=== PATIENT | female | born 1980 | race Caucasian/White ===

== ENCOUNTER 2018-06-30 00:48 | Emergency (ER) | payer OTHER ==
[2018-06-30 02:07] LABS: CONTROL LINE INT CTR LINE PRESENT; HIV EXPOSED PT 1 NEGATIVE (NEGATIVE); HIVEXPOSED0 NEGATIVE (NEGATIVE)
[2018-06-30 11:02] LABS: HEPATITIS B SURFACE ANTIBODY POSITIVE (POSITIVE); HEPATITIS B SURFACE ANTIGEN NEGATIVE (NEGATIVE)
[2018-06-30 11:02] LABS: HEPATITIS C VIRUS ABY INDEX 0.2 INDEX (<0.8)
== END 2018-06-30 01:49 | disposition home or self-care (01) ==
LOC: M ED 00:48
DX: Z77.21 Contact with and (suspected) exposure to potentially hazardous body fluids (principal); E07.9 Disorder of thyroid, unspecified; F33.9 Major depressive disorder, recurrent, unspecified; Z88.5 Allergy status to narcotic agent; Z88.0 Allergy status to penicillin
CPT/HCPCS: 86706

== ENCOUNTER 2020-01-30 07:27 | Emergency (ER) | payer BC, OTHER ==
[~2020-01-30] VITALS: Ht 175.3 cm; Wt 142.5 kg
[2020-01-30 07:27] VITALS: BP 136/85
[2020-01-30] MEDS ORDERED: LEVO112T2 PO (07:34)
[2020-01-30] MEDS ORDERED: ALPR0.5T3 PO (07:34)
[2020-01-30] MEDS ORDERED: BUSP5TA PO (07:34)
[2020-01-30] MEDS ORDERED: DULO1CAP6 PO (07:34)
[2020-01-30 08:25] LABS: BASO # 0.1 10^3/uL (0.0-0.2); EOS # 0.4 10^3/uL (0.0-0.5); EOS % 5.8 % (0.0-3.0); HEMATOCRIT 36.8 % (36.0-47.0); HEMOGLOBIN 11.3 g/dl (12.0-15.5); LYMPH # 2.1 10^3/uL (1.5-5.0); MEAN CORPUSCULAR HGB CONC 30.7 g/dl (32.0-36.5); MEAN CORPUSCULAR VOLUME 81.4 fl (80.0-96.0); MONO # 0.4 10^3/uL (0.0-0.8); MONO % 5.8 % (0.0-5.0); NEUTROPHILS # 3.8 10^3/uL (1.5-8.5); NEUTROPHILS % 55.7 % (36.0-66.0); PLATELET COUNT, AUTOMATED 315 10^3/uL (150-450); RED BLOOD COUNT 4.52 10^6/uL (4.00-5.40); WHITE BLOOD COUNT 6.8 10^3/uL (4.0-10.0)
[2020-01-30 08:38] LABS: INR 1.01
[2020-01-30 08:39] LABS: PARTIAL THROMBOPLASTIN TIME 29.4 SECONDS (25.0-38.4)
[2020-01-30] MEDS ORDERED: ISOVUE-370 76% 100ML VIAL As Ordered ONE (08:55)
[2020-01-30 08:58] LABS: ALBUMIN 3.8 GM/DL (3.2-5.2); ALT/SGPT 28 U/L (12-78); BILIRUBIN,DIRECT < 0.1 MG/DL (0.0-0.2); BILIRUBIN,TOTAL 0.3 MG/DL (0.2-1.0); BLOOD UREA NITROGEN 13 MG/DL (7-18); CALCIUM LEVEL 8.5 MG/DL (8.5-10.1); CARBON DIOXIDE LEVEL 29 MEQ/L (21-32); CHLORIDE LEVEL 105 MEQ/L (98-107); CK-MB VALUE MASS < 1.0 NG/ML (<3.6); CPK CREATINE PHOSPHOKINASE 94 U/L (26-192); GLOMERULAR FILTRATION RATE > 60.0 (>60); GLUCOSE, FASTING 112 MG/DL (70-100); LIPASE 71 U/L (73-393); MB/CK RELATIVE INDEX 1.06 (< OR =4); POTASSIUM SERUM 4.3 MEQ/L (3.5-5.1); SODIUM LEVEL 139 MEQ/L (136-145); TOTAL PROTEIN 7.3 GM/DL (6.4-8.2); TROPONIN I < 0.02 NG/ML (< 0.10)
[2020-01-30] MEDS ORDERED: PANTOPRAZOLE 40MG VIAL (C9113 PER 1) IV ONE (09:45)
[2020-01-30] MEDS ORDERED: GI COCKTAIL 50ML BTL(HYOSCYAMINE/MAALOX/LIDOCAINE VISCOUS)(1:3:1) PO ONE (09:45)
--- NOTE | 2020-01-30 10:05 | REP ---
Chest x-ray: Two views. History: Abdominal pain . Comparison study: No comparison chest x-ray. . Findings: The lungs are well inflated and free of infiltrate. The pleural angles are sharp. The heart size is normal. Pulmonary vasculature is not increased. No significant bony abnormality is seen. There is no evidence of free subdiaphragmatic air. There is an old healed rib fracture on the right anteriorly. Impression: No acute disease. Electronically Signed by Camacho Wilkinson MD 01/30/2020 09:57 A
--- NOTE | 2020-01-30 10:30 | REP ---
REASON FOR EXAM: Epigastric pain. COMPARISON: 100 mL Isovue 370. PRIORS: None. Lung bases are clear. The liver, spleen, pancreas, adrenal glands and kidneys are within normal limits. The abdominal aorta and para-aortic regions are within normal limits. The bowel loops and their mesenteries are within normal limits. Postoperative changes are seen in the left upper quadrant. There is no free fluid or free air. There is no intra-abdominal mass or adenopathy. CT PELVIS: The bowel loops and their mesenteries are within normal limits. There is no pelvic mass or adenopathy. There is no free fluid or free air. Bone window technique throughout the examination showed the osseous structures to be within normal limits. Impression: CT findings are within normal limits. Electronically Signed by Diogenes Montes De Oca DO 01/30/2020 10:37 A
--- NOTE | 2020-01-30 10:32 | REP ---
REASON FOR EXAM: Epigastric pain. PRIORS: None. CONTRAST 100 mL Isovue 370. The mediastinum and pulmonary shivani are within normal limits. There is no mass or adenopathy. There is no pleural or pericardial effusion. The imaged osseous structures are within normal limits. Evaluation of the lung fermin show a few scattered patchy ground-glass opacities in the dependent portions of the lung fermin. There is no significant nodule, mass or abnormal opacity. IMPRESSION: Scattered subsegmental atelectatic changes likely. There is no evidence of acute disease. Electronically Signed by Diogenes Montes De Oca DO 01/30/2020 10:37 A
[2020-01-30] MEDS ORDERED: PROT1TAB2 PO (12:41)
[2020-01-30 12:43] LABS: CK-MB VALUE MASS < 1.0 NG/ML (<3.6); CPK CREATINE PHOSPHOKINASE 94 U/L (26-192); MB/CK RELATIVE INDEX 1.06 (< OR =4); TROPONIN I < 0.02 NG/ML (< 0.10)
--- NOTE | 2020-01-30 16:42 | ECGEPIP ---
[facility] - ED Test Date: 2020-01-30 Pat Name: SOLEDAD KULKARNI Department: Room: - Gender: Female [employer]: Baltazar ORR : 1980 Requested By: BECCA Wang PA-C Order Number: [id number] Reading MD: Janay Holman Measurements Intervals [place] Rate: 83 P: 57 AL: 153 QRS: 37 QRSD: 107 T: 9 QT: 353 QTc: 416 Interpretive Statements SINUS RHYTHM WITH SINUS ARRHYTHMIA NONSPECIFIC T-WAVE ABNORMALITY NO PRIOR Electronically Signed on 01-30-2020 16:42:05 EDT by Janay Holman
== END 2020-01-30 13:01 | disposition home or self-care (01) ==
LOC: M ED 07:27
DX: R10.13 Epigastric pain (principal); K29.70 Gastritis, unspecified, without bleeding; Z98.84 Bariatric surgery status; E03.9 Hypothyroidism, unspecified; Z88.0 Allergy status to penicillin; Z88.5 Allergy status to narcotic agent
CPT/HCPCS: 36415; 71046; 71275; 74177; 80047; 80048; 80076; 81001; 82550; 82553; 83690; 84484; 84702; 85025; 85610; 85730; 93005; 96374; 99284; C9113; Q9967

== ENCOUNTER → 2020-02-26 | Outpatient (CLI) | payer BC, OTHER ==
[~2020-02-26] MED LIST: ALPR0.5T3 PO; BUSP5TA PO; DULO1CAP6 PO; LEVO112T2 PO; PROT1TAB2 PO
== END ==
LOC: M LABSMTC 12:38
PROVIDERS: ATTEND Family Medicine
DX: Z03.818 Encounter for observation for suspected exposure to other biological agents ruled out (principal); Z11.59 Encounter for screening for other viral diseases
CPT/HCPCS: C9803; U0002

== ENCOUNTER → 2020-08-20 | Outpatient (CLI) | payer SELFPAY | LOC: M LABSMTC 14:24 | PROVIDERS: ATTEND Pediatrics | DX: Z20.828 Contact with and (suspected) exposure to other viral communicable diseases (principal) ==

== ENCOUNTER → 2023-11-24 | Outpatient (REF) ==
[2023-11-24 13:06] LABS: RSV AMPLIFICATION NEGATIVE (NEGATIVE)
== END ==
LOC: M EMP 10:10
PROVIDERS: ATTEND Family Medicine
DX: Z11.52 Encounter for screening for COVID-19 (principal)

== ENCOUNTER → 2024-06-03 | Outpatient (REF) | payer BC, OTHER ==
[2024-06-04 20:43] LABS: Trichomonas vaginalis (AMP) NOT DETECTED (NEGATIVE)
[2024-06-04 21:07] LABS: GC DNA AMPLIFICATION NEGATIVE (NEGATIVE)
== END ==
LOC: M LAB 05:42
PROVIDERS: ATTEND Advanced Practice Midwife
DX: Z11.3 Encounter for screening for infections with a predominantly sexual mode of transmission (principal)

== ENCOUNTER 2024-12-13 13:20 | Outpatient (CLI) | payer BC ==
[~2024-12-13] VITALS: Ht 175.3 cm; Wt 85.5 kg
[~2024-12-13 13:20] MED LIST changes: +ALBUTEROL SULFATE 2.5MG/0.5ML INH NEB SOLN INH PRN; +EPINEPHrine INJ 1 MG/ML 1ML AMP IM PRN; +PANT40TA29 PO; +diphenhydrAMINE 50MG/ML VIAL IV PRN; +methylPREDNISolone 125MG 2ML VIAL IV PRN
[2024-12-13 13:38] VITALS: BP 131/68; O2SAT 100
[2024-12-13] MEDS: IRON SUCROSE 500 MG in NS 250 ML OVER 4 HRS IV ONE (13:53)
[2024-12-13] MEDS ORDERED: TIRZ15PE3 SQ (14:10)
[2024-12-13 16:00] VITALS: BP 132/63; O2SAT 100
[2024-12-13 17:50] VITALS: BP 123/59; O2SAT 98
== END 2024-12-13 17:50 ==
LOC: M INFU 13:20
PROVIDERS: ATTEND Advanced Practice Midwife
DX: D64.9 Anemia, unspecified (principal); Z88.0 Allergy status to penicillin; Z88.5 Allergy status to narcotic agent
CPT/HCPCS: 96365; 96366; J1756

== ENCOUNTER → 2025-04-15 | Outpatient (REF) | payer BC ==
[~2025-04-15] MED LIST changes: -ALBUTEROL SULFATE 2.5MG/0.5ML INH NEB SOLN INH PRN; -EPINEPHrine INJ 1 MG/ML 1ML AMP IM PRN; +TIRZ15PE3 SQ; -diphenhydrAMINE 50MG/ML VIAL IV PRN; -methylPREDNISolone 125MG 2ML VIAL IV PRN
[2025-04-15 21:03] LABS: PLATELET COUNT, AUTOMATED 293 10^3/uL (150-450)
[2025-04-15 21:21] LABS: IRON (FE) 28.0 UG/DL (50-170)
[2025-04-15 21:23] LABS: FREE T4 1.39 NG/DL (0.89-1.76)
== END ==
LOC: M LAB REF 20:43
PROVIDERS: ATTEND Advanced Practice Midwife
DX: D50.8 Other iron deficiency anemias (principal); E03.9 Hypothyroidism, unspecified

== ENCOUNTER → 2025-04-15 | Outpatient (REF) | payer BC | LOC: M LAB 20:21 | PROVIDERS: ATTEND Advanced Practice Midwife | DX: E03.9 Hypothyroidism, unspecified (principal); D50.8 Other iron deficiency anemias ==

== ENCOUNTER 2025-05-16 08:27 | Outpatient (CLI) | payer BC ==
[~2025-05-16] VITALS: Ht 175.3 cm; Wt 83.6 kg
[~2025-05-16 08:27] MED LIST changes: +ALBUTEROL SULFATE 2.5 MG/0.5 ML INH CONCENTRATE NEB SOLN INH PRN; +EPINEPHrine INJ 1 MG/ML 1ML AMP IM PRN; +diphenhydrAMINE 50 MG/ML VIAL IV PRN
[2025-05-16 08:45] VITALS: BP 105/56; O2SAT 100
[2025-05-16] MEDS: IRON SUCROSE 200 MG IVP IV ONE (09:02)
[2025-05-16 09:15] VITALS: BP 123/75; O2SAT 98
== END 2025-05-16 09:15 ==
LOC: M INFU 08:27
PROVIDERS: ATTEND Advanced Practice Midwife
DX: D64.9 Anemia, unspecified (principal); Z88.0 Allergy status to penicillin; Z88.5 Allergy status to narcotic agent
CPT/HCPCS: 96374; J1756

== ENCOUNTER 2025-07-16 10:24 | Observation (INO) | payer BC ==
[~2025-07-16] VITALS: Ht 175.3 cm; Wt 85.7 kg
[2025-07-16] MEDS: ceFAZolin SOD 2 GM IV ONCE IV ONE (06:00)
[~2025-07-16 10:24] MED LIST changes: -ALBUTEROL SULFATE 2.5 MG/0.5 ML INH CONCENTRATE NEB SOLN INH PRN; +CLINDAMYCIN 900 MG in IV 1 EA IV ONE; -EPINEPHrine INJ 1 MG/ML 1ML AMP IM PRN; +HYDR-643 PO; +LIDOCAINE 2% 100 MG/5 ML SDV (FOR ANES.) As Ordered ONE; +ONDANSETRON 4MG 2ML VIAL As Ordered ONE; +ROCURONIUM BROMIDE 50MG/5ML VIAL As Ordered ONE; +SUGAMMADEX SODIUM 500 MG/5 ML VIAL As Ordered ONE; +dexAMETHasone 4 MG/ML 1 ML VIAL As Ordered ONE; -diphenhydrAMINE 50 MG/ML VIAL IV PRN
[2025-07-16] MEDS ORDERED: LEVO137C2 PO (11:26)
[2025-07-16] MEDS ORDERED: MODA200T15 PO (11:26)
[2025-07-16] MEDS ORDERED: HYDR-3363 PO (11:26)
[2025-07-16] MEDS ORDERED: ERGO125013 PO (11:30)
[2025-07-16] MEDS ORDERED: FAMOTIDINE 20 MG/2 ML VIAL IVP ONE (11:30)
[2025-07-16] MEDS ORDERED: HOME MED LIST COMPLETE! XX SCH (11:30)
[2025-07-16] MEDS: SCOPOLAMINE 1MG TRANSDERMAL PATCH TOP ONE (11:30)
[2025-07-16 11:43] LABS: HCG, SERUM QUANTITATIVE < 2.6 MIU/ML (<4.2)
[2025-07-16 11:47] LABS: FREE T4 1.46 NG/DL (0.89-1.76)
[2025-07-16] MEDS ORDERED: MIDAZOLAM INJ 2 MG/2 ML VIAL As Ordered ONE (12:05)
[2025-07-16] MEDS: LR 1,000 ML IV SCH ×2 (13:10→18:45)
[2025-07-16] MEDS: HEPARIN SOD 5000 UNITS/ML 1 ML VIAL/SYRINGE SQ ONE (14:00)
[2025-07-16] MEDS: CLINDAMYCIN 900 MG/50 ML PREMIX BAG As Ordered ONE (14:03)
[2025-07-16] MEDS ORDERED: ACETAMINOPHEN 1000MG/100ML IV BAG As Ordered ONE (14:08)
[2025-07-16] MEDS: GENTAMICIN SULF 80 MG/2 ML VIAL As Ordered ONE (14:28)
[2025-07-16] MEDS ORDERED: HYDROmorphone HCL 2 MG/ML 1 ML VIAL As Ordered ONE (15:09)
[2025-07-16] MEDS ORDERED: MORPHINE 4 MG/ML 1 ML VIAL IV PRN (17:15)
[2025-07-16] MEDS ORDERED: HYDROMORPHONE HCL 0.5 MG/0.5 ML SYRINGE IV PRN (17:15)
[2025-07-16] MEDS ORDERED: ACETAMINOPHEN 325 MG TAB PO PRN (17:20)
[2025-07-16] MEDS ORDERED: traMADol 50 MG TAB PO PRN (17:20)
[2025-07-16] MEDS: ONDANSETRON 4MG 2ML VIAL IV PRN (18:16)
[2025-07-16 18:45] VITALS: BP 117/64; TEMP 97.2; O2SAT 97
[2025-07-16 19:43] VITALS: BP 118/65; TEMP 96.6; O2SAT 95
[2025-07-16] MEDS: CLINDAMYCIN 900 MG in IV 1 EA IV ONE (20:33)
[2025-07-16 20:46] VITALS: BP 113/64; TEMP 97.7; O2SAT 96
[2025-07-16 22:27] VITALS: BP 113/63; TEMP 96.6; O2SAT 95
[2025-07-16 23:58] VITALS: BP 113/63; TEMP 97.3; O2SAT 95
[2025-07-17] MEDS: PERCOCET 5MG/325MG TAB PO PRN (00:06)
[2025-07-17] MEDS: LEVOTHYROXINE 137 MCG TABLET (0.137 MG) PO SCH (06:13)
[2025-07-17 06:22] LABS: PLATELET COUNT, AUTOMATED 280 10^3/uL (150-450)
[2025-07-17 06:46] LABS: CALCIUM LEVEL 8.8 MG/DL (8.5-10.1); CARBON DIOXIDE LEVEL 30 MMOL/L (20-31); CHLORIDE LEVEL 106 MMOL/L (98-107); CREATININE FOR GFR 0.70 MG/DL (0.55-1.30); GLOMERULAR FILTRATION RATE > 90.0 (>58); POTASSIUM SERUM 4.2 MMOL/L (3.5-5.1); SODIUM LEVEL 144 MMOL/L (136-145)
[2025-07-17 06:50] VITALS: BP 108/63; TEMP 96.8; O2SAT 97
[2025-07-17] MEDS ORDERED: PERCOCET PO (09:14)
== END 2025-07-17 11:35 | disposition home or self-care (01) ==
LOC: M SDC 10:24 → M RR INP 10:25 → M MS5PR 18:35
PROVIDERS: ADMIT Plastic Surgery Surgery of the Hand; ATTEND Plastic Surgery Surgery of the Hand
DX: M54.07 Panniculitis affecting regions of neck and back, lumbosacral region (principal); Z88.0 Allergy status to penicillin; Z88.5 Allergy status to narcotic agent
CPT/HCPCS: 15830; 15847; 36415; 80048; 84439; 84443; 84481; 84702; 85027; 88300; 96361; 96365; J0131; J0665; J0666; J0737; J1100; J1171; J1580; J2250; J2405; J3010